=== PATIENT | female | born 1940 | race Caucasian/White ===

== ENCOUNTER 2019-11-15 14:11 | Emergency (ER) | payer OTHER, SELFPAY ==
--- NOTE | ~2019-11-15 | XR_ITS ---
XR chest 2V DATE: 11/15/2019 15:21 INDICATION: Cough, shortness of breath. Influenza. TECHNIQUE: PA and lateral views COMPARISON: 09/17/2016 PA and lateral chest FINDINGS: Normal heart size. Aortic calcification and mild unfolding. No hilar or mediastinal enlarge ment. Lateral calcified pulmonary granulomas. No pulmonary infiltrate or consolidation, pleural effus ion or pulmonary vascular congestion or pneumothorax. Surgical clips, right upper quadrant likely due to cholecystectomy. Status post posterior lumbar spine fusion. Diffuse osteopenia. IMPRESSION: No active cardiopulmonary disease Reviewed, dictated and finalized at location B.
[2019-11-15 14:22] VITALS: BP 114/55; PULSE 90; RESP 20; TEMP 35.9; O2SAT 96
--- NOTE | 2019-11-15 14:59 | ED.URI ---
HPI - URI/Sore Throat General Chief Complaint: Upper Respiratory Infection Stated Complaint: COUGH, FEVER Time Seen by Provider: 11/15/19 14:36 Source: patient Mode of arrival: ambulatory Limitations: no limitations History of Present Illness HPI Narrative: This is a 78-year-old female that presents the emergency department for cold symptoms x1 and half weeks. Reports cough, congestion, and sore throat. Reports she was seen at an urgent care for this 3 days ago and diagnosed with influenza. Reports she was started on a Z-Rey and steroids. Reports she has continued to have cough and fatigue. Denies fever, or chest pain. Related Data Home Medications Medication Instructions Recorded Confirmed albuterol sulfate INHALATION 11/15/19 azithromycin 11/15/19 carvedilol 11/15/19 prednisone 0 mg PO PER PKG DIR 11/15/19 Allergies Allergy/AdvReac Type Severity Reaction Status Date / Time clopidogrel Allergy Severe Swelling Verified 11/15/19 14:55 milk Allergy Mild LACTOSE Verified 11/15/19 14:26 INTOLERANT Sulfa (Sulfonamide Allergy Mild Unknown Verified 11/15/19 14:26 Antibiotics) Penicillins AdvReac Intermediate RASH Verified 11/15/19 14:26 Review of Systems Review of Systems: Narrative: CONSTITUTIONAL: Denies fever ENT: Reports congestion, sore throat. Denies otalgia. CARDIOVASCULAR: Denies chest pain RESPIRATORY: Reports cough and dyspnea. All systems reviewed & are unremarkable except as noted in HPI and below PMFSH Past Medical History Medical History (Updated 11/15/19 @ 16:07 by Alice Fleming PA-C) Chronic back pain History of hyperlipidemia Hypertension Social History Social History (Updated 09/04/19 @ 12:33 by Terrence Valdez PA-C) Smoking status: Current every day smoker Gender identity (if verbalized by the patient): Female Exam Narrative: Exam Narrative: GENERAL: Elderly, well-nourished, and in no acute distress. HEAD: Normocephalic, atraumatic. EYES: EOMI. ENT: Nares clear, no rhinorrhea or epistaxis. Mucous membranes moist. Oropharynx without tonsillar hypertrophy exudate or other lesions. Bilateral TMs pearly yee non-bulging NECK: Supple. No adenopathy or masses. CHEST: No respiratory distress. Mild scattered wheezes. No rales or rhonchi HEART: Regular rate and rhythm. No murmur heard. Normal peripheral pulses. EXTREMITIES: Normal range of motion. No edema. SKIN: Warm, dry, no rash. NEURO: No focal deficits. Alert and oriented x3. PSYCH: Normal mood and affect Course Vital Signs Vital signs: Vital Signs Temperature 96.7 F L 11/15/19 14:22 Pulse Rate 90 11/15/19 14:22 Respiratory Rate 20 11/15/19 14:22 Blood Pressure 114/55 L 11/15/19 14:22 Pulse Oximetry 96 11/15/19 14:22 Temperature 96.7 F L 11/15/19 14:22 Pulse Rate 74 11/15/19 15:13 Respiratory Rate 18 11/15/19 15:13 Blood Pressure 114/55 L 11/15/19 14:22 Pulse Oximetry 96 11/15/19 14:22 MDM - URI/Sore Throat MDM Narrative Medical decision making narrative: Patient presents the emergency department for cold symptoms for a week and a half. She is afebrile and nontoxic-appearing. Normal oxygen saturation on room air. Lungs are clear, other than mild scattered wheezes. CBC and metabolic panel without acute changes. Chest x-ray is without acute changes. Patient reports improvement after nebulizer treatment and lungs are now clear. Patient will be given vials for her nebulizer at home. She was instructed on continued symptomatic care as she is out of treatment window. Patient is to follow-up with her primary care doctor. She is given warnings to return to ER Lab Data Attestation: I reviewed the patient's lab results. Result diagrams: 11/15/19 15:04 11/15/19 15:04 Labs: Lab Results 11/15/19 11/15/19 Range/Units 15:04 15:04 WBC 9.6 (4.5-10.0) K/mm3 RBC 4.20 (4.2-5.4) M/mm3 Hgb 13.4 (12.0-15.0) g/dL Hct 40.5 (37.0-47.0)
[2019-11-15] MEDS: ALBUTEROL SULFATE NEB 2.5 MG/0.5 ML INH 5 MG INHALATION (15:04)
[2019-11-15] MEDS: IPRATROPIUM BR 0.02% INH SOLN 0.5 MG/2.5 ML VIAL INHALATION (15:04)
[2019-11-15 15:07] VITALS: PULSE 74; RESP 18
[2019-11-15 15:10] LABS: Basophils Absolute Auto 0.1 K/mm3 (0.0-0.1); Basophils Percent Auto 0.5 % (0.2-1.2); Eosinophils Percent Auto 0.1 % (0-4.4); Hematocrit 40.5 % (37.0-47.0); Hemoglobin 13.4 g/dL (12.0-15.0); Immature Granulocyte Absolute 0.09 K/mm3 (0.00-0.031); Immature Granulocyte Percent A 0.9 % (0-0.5); Lymphocytes Absolute Auto 1.43 K/mm3 (0.9-3.2); Lymphocytes Percent Auto 14.9 % (18.3-44.2); Mean Corpuscular HGB Conc 33.1 g/dl (32-36); Mean Corpuscular Hemoglobin 31.9 pg (26-34); Mean Corpuscular Volume 96.4 fl (80-100); Mean Platelet Volume 10.7 fl (7.4-10.4); Monocytes Absolute Auto 0.3 K/mm3 (0.1-0.6); Monocytes Percent Auto 2.9 % (2.6-8.5); Neutrophils Absolute Auto 7.8 K/mm3 (1.3-6.7); Neutrophils Percent Auto 80.7 % (45.5-73.1); Platelet Count Result 202 k/mm3 (150-375); Red Cell Distribution Width 13.1 % (11.5-14.5); White Blood Count 9.6 K/mm3 (4.5-10.0)
[2019-11-15 15:13] VITALS: PULSE 74; RESP 18
[2019-11-15 15:22] LABS: Blood Urea Nitrogen 14 mg/dL (7-17); Carbon Dioxide 23 mmol/L (22-30); Chloride 106 mmol/L (98-107); Estimated CRCL calculation 68 ml/min; Estimated Glomerular Filt Rate > 60; Glucose 126 mg/dL (65-105); Potassium 3.8 mmol/L (3.4-5.0); Sodium 139 mmol/L (137-145)
== END 2019-11-15 16:35 | disposition home or self-care (01) ==
PROVIDERS: Physician Assistant; Emergency Provider Emergency Medicine
DX: J11.1 Influenza due to unidentified influenza virus with other respiratory manifestations (principal); E78.5 Hyperlipidemia, unspecified; I10 Essential (primary) hypertension; F17.200 Nicotine dependence, unspecified, uncomplicated
CPT/HCPCS: 36415; 71046; 80048; 85025; 94640; 99283

== ENCOUNTER 2019-12-12 08:46 | Outpatient (CLI) | payer OTHER, SELFPAY ==
--- NOTE | ~2019-12-12 | NM_ITS ---
EXAMINATION: NM bone scan whole body DATE: 12/12/2019 12:31 INDICATION: Thoracic radiculopathy. TECHNIQUE: 24.1 mCi Tc-99m HDP was administered intravenously. Delayed whole-body scintigrams were o btained. COMPARISON: Chest 2 views 11/15/2019, CT abdomen and pelvis 07/24/2017 FINDINGS: There is disc-centered increased activity at T8-T9 correlating with severe degenerative dis c disease on radiographs. There is increased activity at the facet joints at L2-L3 correlating with s evere osteoarthritis by CT. There is increased activity in lower lumbar spine correlating with change s of posterior fusion procedure. There is joint-centered increased activity in cervical spine on the right without radiographic comparison, likely osteoarthritis. There is increased activity in left kne e without radiographic comparison, likely osteoarthritis. There is increased activity in the hips cor relating with osteoarthritis on CT. There is increased activity in the hands, wrists, shoulders, and left foot without radiographic comparison, likely osteoarthritis. IMPRESSION: 1. Increased activity at T8-T9 correlating with severe degenerative disc disease on radiographs. Reviewed, dictated and finalized at location A. IMPRESSION: 1. Increased activity at T8-T9 correlating with severe degenerative disc diseas e on radiographs.
== END 2019-12-12 08:47 | disposition home or self-care (01) ==
PROVIDERS: PCP Family Medicine
DX: M54.14 Radiculopathy, thoracic region (principal)
CPT/HCPCS: 78306; A9561

== ENCOUNTER 2024-01-08 08:41 | Outpatient (CLI) | payer OTHER, SELFPAY ==
--- NOTE | ~2024-01-08 | CT_ITS ---
Clinical Indication: Weight loss CT Scan of the Chest, Abdomen, and Pelvis with Contrast: Technique: Contiguous sections were acquired throughout the chest, abdomen, and pelvis after intraven ous administration of 100 cc of Omnipaque 350. Dose reduction technique was used on this scan by abigail rivers automated exposure control and iterative reconstruction technique. The dose-length product (DL P) was 259.84 mGy-cm. COMPARISON: 07/24/2017 Findings: There is no evidence of any significant mediastinal, hilar or axillary lymphadenopathy. There is exte nsive atherosclerotic change of the aorta. Small calcified right hilar lymph nodes are present. No pu lmonary embolus seen. No aortic aneurysm or dissection seen. There is no evidence of pleural or pericardial effusion. Scattered calcified granulomas are noted. No suspicious pulmonary nodule seen.. Intrahepatic and extra hepatic biliary dilatation may be related to prior cholecystectomy. Probable d iffuse hepatic steatosis. The spleen, pancreas, right adrenal and, and kidneys are within normal limi ts. Probable 1.3 cm left adrenal nodule. Probable additional more inferior 1.9 cm left adrenal nodule . There is extensive atherosclerotic change of the aorta. Bilateral iliac artery stents present. No lymphadenopathy. No bowel obstruction or bowel wall thickening. There is no evidence to suggest acute appendicitis. Urinary bladder is unremarkable. No adnexal mass seen status post hysterectomy. No ascites. Small fat -containing left inguinal hernia present. Impression: No acute abnormality evident. No definite evidence for malignancy. Left adrenal nodules are stable to minimally increased from prior exam, therefore most compatible wit h benign adenomas. Diffuse hepatic steatosis. Small fat-containing left inguinal hernia. Additional chronic appearing changes, as above. Reviewed, dictated and finalized at [facility]. Impression: No acute abnormality evident. No definite evidence for malignancy. Left adrenal nodules are stable to minimally increased from prior exam, therefo re most compatible with benign adenomas. Diffuse hepatic steatosis. Small fat-containing left inguinal hernia. Additional chronic appearing changes, as above.
[2024-01-08 09:36] LABS: Estimated Glomerular Filt Rate 60
== END 2024-01-08 08:42 | disposition home or self-care (01) ==
PROVIDERS: Visit Provider Student in an Organized Health Care Education/Training Program
DX: R63.4 Abnormal weight loss (principal); K76.0 Fatty (change of) liver, not elsewhere classified; K40.90 Unilateral inguinal hernia, without obstruction or gangrene, not specified as recurrent; D35.02 Benign neoplasm of left adrenal gland
CPT/HCPCS: 71260; 74177; Q9967